=== PATIENT | female | born 2005 | race Caucasian/White ===

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

== ENCOUNTER 2024-01-30 08:16 | Outpatient (CLI) | payer MEDICAID, SELFPAY | END 2024-01-30 08:17 | disposition home or self-care (01) | LOC: LBO 08:16 | PROVIDERS: PCP Nurse Practitioner Pediatrics; Visit Provider Nurse Practitioner Pediatrics | DX: R76.8 Other specified abnormal immunological findings in serum (principal); Z00.129 Encounter for routine child health examination without abnormal findings | CPT/HCPCS: 36415; 86317 ==

== ENCOUNTER 2025-06-15 09:28 | Outpatient (REF) | payer MEDICAID, SELFPAY ==
--- NOTE | 2025-06-15 09:15 | PAPFT_PTH ---
PATIENT: Nimisha Braswell LOC: [facility] U#:[id number] AGE/SX: 19/F ROOM: RE06/15/[address]: Naty Lopez NP : 2005 BED: DIS: 06/15/2025 SPEC #: [id number] RECD: 06/15/25 13:19 STATUS: PRATIMA MONET #: [id number] EMY: 06/15/25 09:[address]: Naty Lopez NP DEPT: [facility] Cytology RECD BY: Christin Can ENTERED: 06/15/25 13:19 SP TYPE: PAPFT OTHR DR: Madi Hurt NP Tissues: 1 - CX/ENDOCX FOR PAP SMEARS Procedures: PAP THIN PREP/UVM Screening Comments: [id number]
== END 2025-06-15 09:29 | disposition home or self-care (01) ==
LOC: LBN 09:28
PROVIDERS: PCP Nurse Practitioner Pediatrics; Visit Provider Nurse Practitioner Women's Health
DX: Z12.4 Encounter for screening for malignant neoplasm of cervix (principal)
CPT/HCPCS: 88142